=== PATIENT | female | born 1990 | race Caucasian/White ===

== ENCOUNTER 2019-05-07 00:55 | Emergency (ER) | payer OTHER ==
[2019-05-07] MEDS ORDERED: ONDANSETRON *ODT* 4 MG TABLET SL ONE (00:57)
[2019-05-07 01:09] VITALS: TEMP 98.5; BMI 26.1
[2019-05-07] MEDS ORDERED: IBUPROFEN 600 MG TABLET (FP) PO ONE ×2 (01:09→01:11)
[2019-05-07] MEDS ORDERED: ONDANSETRON *ODT* 4 MG TABLET ONE (01:11)
--- NOTE | 2019-05-07 01:16 | PDOC ---
History of Present Illness - General Chief Complaint: Nausea Stated Complaint: FEVER,NAUSEA Time Seen by Provider: 05/07/19 00:57 History Source: Patient Exam Limitations: No Limitations - History of Present Illness Initial Comments: 05/07/19 01:09 HPI 28 YOF with PMH anxiety, depression,chronic back pain 2/2 spondylolysis s/p back surgery, neuropathy presenting with intermittent fever and chills, generalized weakness and body aches, nonproductive cough and sinus congestion and pressure, headache and dizziness x 5 days. Tmax tonight was 103, she took nyquil at 1030pm as well as tylenol at 8pm, with some effect. +decreased appetite, but tolerating less oral intake/fluids. she admits to feeling nauseous and generalized abdominal pain, but no emesis. she has been constipated intermittently x several days, last BM yesterday, +flatus; has only taken miralax today x 1 but could not finish drinking the glass of water she reconstituted the miralax in. she went to urgent care 1 day ago, where her flu and strep test were negative. she is still having the symptoms Denies fever, chills, chest pain, SOB, palpitation, dizziness, weakness, N, V, D , abdominal pain, bladder and bowel problems, focal weakness/paresthesias, leg swelling/pain, rash. No travel. No new changes in medications. No suspicious food intake. 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 Allergies: None Past Medical History/PSH: as above Social history: Lives with family. + tobacco, cigarettes daily. no ETOH or drug use. Meds: as documented in EMR Review of systems Constitutional: +fevers or chills. + weakness HEENT:+headache or dizziness. +sinus pressure and congestion. No eye pain, discharge, no ear pain or tinnitis or fullness. No visual/hearing disturbances. CVS: no cp or syncope. Resp: no sob. +dry cough. Gastrointestinal: no vomiting, diarrhea. +constipated, +abdominal pain, + nausea. Genitourinary: no urinary sx, hematuria. MUSCULOSKELETAL: No joint pain and swelling. No neck or back pain. +myalgias. + body aches. SKIN: no redness or skin changes, no discharge, no rash. No wounds. Hematologic: no easy bruising/bleeding. NEUROLOGIC: No LOC or altered mental status. No weakness, numbness or tingling. Psych: +anxiety or depression Allergic/Immunologic: no allergies All other systems reviewed and negative, or as documented in HPI. Physical exam General: awake and alert, NAD. HEENT: NCAT, PERRL, EOMI, clear conjunctiva, anicteric, moist mucus membranes, clear oropharynx, no oral lesions.. b/l TM clear. +sinus tenderness to percussion in forehead. uvula midline, no tonsillary hypertrophy. Neck: neck supple, FROM, no meningeal signs, neg brudzinski or kernig's sign Resp: CTAB, normal and even respirations, no respiratory distress CVS: +tachycardia, no murmurs, 2+ peripheral pulses throughout, no peripheral edema Abdomen: soft, NTND, no rebound or guarding. no CVAT. Back: nontender, normal inspection and ROM MSK: no edema, ELIZABETH x4, ROM intact. No clubbing or cyanosis. normal bulk and tone. Extremities: no calf tenderness Neuro: alert, oriented appropriately; no focal neurologic deficits Psych: Calm and cooperative Skin: warm and well perfused, cap refill <2 sec, normal color, no rash or skin discoloration. +acne in lower face. Past History - Past Medical History Allergies/Adverse Reactions: Allergies Allergy/AdvReac Type Severity Reaction Status Date / Time No Known Allergies Allergy Verified 05/07/19 00:57 Home Medications: Ambulatory Orders Buprenorphine HCl/Naloxone HCl [Suboxone 8 mg-2 mg Sl Tablets] 1 each SL DAILY 05/07/19 Buspirone HCl [Buspar -] 30 mg PO BID 05/07/19 Gabapentin [Neurontin] 1,200 mg PO DAILY 05/07/19 Meloxicam 15 mg PO DAILY 05/07/19 Ondansetron HCl [Zofran] 4 mg PO TID PRN #9 tablet 05/07/19 Quetiapine Fumarate [Seroquel -] 125 mg PO DAILY 05/07/19 Medical Decision Making - Medical Decision Making 05/07/19 01:19 Vital Signs Temp Pulse Resp BP Pulse Ox 98.5 F 112 H 16 122/84 100 05/07/19 01:06 05/07/19 01:06 05/07/19 01:06 05/07/19 01:06 05/07/19 01:06 VS reviewed, no fever here. nontoxic appearing. +tachycardia noted. normotensive sats 100% on RA, no distress. clear breath sounds, airway intact. abdomen soft and nontender, no focal symptoms -- doubt intra abdominal pathology. constipation likely stemming from decreased oral/fluid intake, which she was advised to keep up with no peritoneal findings. no systemic features noted no meningeal s/s. neuro intact. no risk factors for complications or immunocompromised state doubt pna, with clear lungs and she has had neg flu/strep swab done at urgent care no other labs/indications to treat with abx indicated. no imaging indicated based on clinical exam and history. instructed pt likely URI/viral syndrome, supportive care and hydration advised zofran prn for nausea/vomiting to help with PO intake. cycle through tylenol/motrin as needed for headache/fever and pain/aches. caution with tylenol and other OTC meds such as nyquil/dayquil smoking cessation advised, as likely exacerbant of her cough/symptoms. Pt to be discharged in stable condition. Patient and family made aware of clinical impression, treatment recommendations and disposition plan, return precautions discussed (including but not limited to new or persistent/worsening symptoms, pain, fevers, or signs of infection, chest pain, respiratory distress , inability to tolerate oral intake, dehydration, syncope, or neurologic changes ). Follow up with PMD as recommended, follow up information provided, take medications as instructed for duration of time. continue with supportive care, avoid triggers and precipitants. All questions answered to patient's satisfaction and expressed understanding and comfort with this. At the time of discharge, the patient is alert, clinically improved, tolerating po and verbalizes understanding of instructions, satisfied with the care received and felt comfortable with the plan. Patient does not suffer from an acute life- threatening medical condition at this time and is safe for outpatient follow- up. Discharge - Discharge Information Problems reviewed: Yes Clinical Impression/Diagnosis: Viral syndrome Condition: Stable Disposition: HOME - Admission No - Additional Discharge Information Prescriptions: Ondansetron HCl [Zofran] 4 mg PO TID PRN #9 tablet PRN Reason: nausea vomiting - Follow up/Referral Referrals: [facility] [place] [place] [Provider Group] [facility] [Provider Group] - Patient Discharge Instructions Patient Printed Discharge Instructions: DI for Viral Upper Respiratory Infection -- Adult, DI for Viral Syndrome Additional Instructions: 1) Please follow-up with your primary care doctor in the next 1-2 days. Please call tomorrow for for any urgent issues. You most likely have an upper respiratory infection/viral syndrome. 2) If you have any worsening of symptoms or any other concerns please return to the ED immediately. Return if worsening symptoms including fevers, headache, vomiting, visual or hearing disturbances, abdominal pain, chest pain, shortness of breath, syncope, dehydration, inability to take things by mouth/vomiting, altered mental status, or worsening concerning symptoms. 3) Please continue taking your home medications as directed. your medications on discharge include Zofran 3 times a day as needed for nausea/vomiting. You should also take MiraLAX 1 capful reconstituted in juice or liquids to be taken daily for the next 3 to 5 days to help with your constipation. Stay well hydrated and rest adequately. Make an appointment. If you cannot follow-up with your primary care doctor please return to the ED RESPIRATORY precautions: salt water gargles, 1-2 spoonful of honey and warm lemon tea is appropriate as well for soothing qualities for sore throat/cough. minimize spread of infection given contagious nature, and cover your mouth and wash your hands adequately with soap and water. Stay well hydrated and rest. Cool air - walk around outdoors in the evening. May also try hot shower steam. This can alleviate the congestion and cough. You can also use Riccola - dual action with lemon/honey to soothe your throat and cough. Return precautions include respiratory distress, difficulty breathing, cyanosis , chest pain, lethargy, confusion, dehydration, high fevers or pain. - Post Discharge Activity
[2019-05-07 01:21] VITALS: BP 101/65; PULSE 98
== END 2019-05-07 01:24 | disposition home or self-care (01) ==
LOC: FER 00:55
DX: B34.9 Viral infection, unspecified (principal)
CPT/HCPCS: 99283-25; Q0162